=== PATIENT | female | born 2000 | race Caucasian/White ===

== ENCOUNTER 2022-03-24 16:55 | Emergency (ER) | payer OTHER, SELFPAY ==
[2022-03-24 16:55] VITALS: BP 112/78; PULSE 90; RESP 15; TEMP 36.9; O2SAT 100; BMI 17.9
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
[2022-03-24 17:19] VITALS: BMI 18.4
[2022-03-24] MEDS: Rabies Vaccine,Human Diploid 2.5 UNITS Vial IM (17:39)
[2022-03-24] MEDS: Rabies Immune Globulin 150 UNITS/ML 860 UNITS IM (17:45)
--- NOTE | 2022-03-24 18:02 | ED.RN ---
see rabies paper documentation
== END 2022-03-24 18:04 | disposition home or self-care (01) ==
LOC: ED 17:24
PROVIDERS: Emergency Provider Emergency Medicine; Visit Provider Emergency Medicine
DX: Z23 Encounter for immunization (principal)
CPT/HCPCS: 90375; 90675; 99282

== ENCOUNTER 2022-03-27 08:02 | Outpatient (CLI) | payer OTHER, SELFPAY ==
[2022-03-27 08:03] VITALS: BP 104/73; PULSE 79; RESP 16; TEMP 36.3; O2SAT 100; BMI 17.9
[2022-03-27] MEDS: Rabies Vaccine,Human Diploid 2.5 UNITS Vial IM (08:31)
== END 2022-03-27 08:45 | disposition home or self-care (01) ==
LOC: ED 08:56
DX: Z23 Encounter for immunization (principal)
CPT/HCPCS: 90675; 96372

== ENCOUNTER 2022-03-31 12:53 | Outpatient (CLI) | payer OTHER, SELFPAY ==
[2022-03-31 12:53] VITALS: BP 110/72; PULSE 83; RESP 15; TEMP 36.5; O2SAT 98; BMI 18.2
[2022-03-31 13:06] VITALS: RESP 15; BMI 18.2
[2022-03-31] MEDS: Rabies Vaccine,Human Diploid 2.5 UNITS Vial IM (13:31)
== END 2022-03-31 13:56 | disposition home or self-care (01) ==
LOC: ED 13:58
PROVIDERS: Visit Provider Student in an Organized Health Care Education/Training Program
DX: Z23 Encounter for immunization (principal)
CPT/HCPCS: 90675; 96372

== ENCOUNTER 2022-04-07 10:28 | Outpatient (CLI) | payer OTHER, SELFPAY ==
[2022-04-07 10:32] VITALS: BP 134/90; PULSE 80; RESP 16; TEMP 36.3; O2SAT 99; BMI 17.9
[2022-04-07] MEDS: Rabies Vaccine,Human Diploid 2.5 UNITS Vial IM (11:04)
== END 2022-04-07 11:58 | disposition home or self-care (01) ==
LOC: ED 11:59
PROVIDERS: Visit Provider Emergency Medicine
DX: Z23 Encounter for immunization (principal)
CPT/HCPCS: 90675; 96372

== ENCOUNTER → 2024-01-31 | Outpatient (CLI) | payer OTHER, SELFPAY ==
[2024-01-31 11:34] LABS: Bacteria 0 SEEN /hpf (None Seen); Mucous, Urine 0 SEEN /hpf (<or=2+)
[2024-01-31 12:39] LABS: Color, Urine Yellow (Yellow); Glucose, Dipstick Normal (Normal); Ketone-Dipstick Negative (Negative); Leukocyte Esterase-Dipstick 500 /ul (Negative); Nitrite-Dipstick Negative (Negative); Occult Blood-Urine 10 /ul (Negative); Protein-Dipstick Negative (Negative); Urine Bilirubin Dipstick Negative (Negative); Urine Clarity Clear (Clear); Urine Urobilinogen Normal (Normal); Urine pH 6.5 (5.0 - 8.0)
[2024-01-31 13:01] LABS: Red Blood Cells-Urine 0-5 SEEN /hpf (0-5); Squamous Epithelial Cells - UA 0-5 SEEN /hpf (5-10); White Blood Cells 25-50 SEEN /hpf (0-5)
[2024-01-31 13:31] LABS: Internal QC Validated? YES +Cl - CLEAR BKGD; Pregnancy, Urine Negative Negative
[2024-01-31 15:46] LABS: Absolute Lymphocyte Count 1.74 X10^3/uL (0.83-4.51); Absolute Neutrophil Count 3.6 X10^3/uL (2.0-7.7); Basophil# 0.07 X10^3/uL; Basophil% 1.2 % (0-1); Eosinophil# 0.22 X10^3/uL; Eosinophils% 3.6 % (0-5); Hematocrit 42.1 % (37-47); Hemoglobin 13.2 g/dL (12.0-15.0); Lymphocyte # 1.74 X10^3/ul (0.83-4.51); Lymphocyte % 28.6 % (19-41); Mean Corp Hgb Conc 31.4 g/dL (32-36); Mean Corpuscular Hgb 28.7 pg (27.0-32.0); Mean Corpuscular Volume 91.5 fL (81-99); Mean Platelet Vol. 12.6 fl (6.2-12.0); Monocyte# 0.41 X10^3/uL; Monocyte% 6.7 % (0-10); NRBC Flagged by Analyzer 0 % (0-5); Neutrophil # 3.59 X10^3/uL (2.7-7.7); Neutrophil % 59.1 % (47-70); Platelet Count 291 K/mm3 (150-450); RBC Distribution Width CV 12.3 % (11.6-14.6); White Blood Count 6.1 K/mm3 (4.4-11.0)
[2024-01-31 16:49] LABS: HIV - WCH Non-Reactive (Nonreactive); Hepatitis B Surface Antibody Non-Reactive; Hepatitis C Antibody Non-Reactive (Nonreactive); Syphilis Antibodies Non-reactive
[2024-02-01 01:32] LABS: ALB/GLOB Ratio 1.1 RATIO (0.9-2.4); AST(SGOT) 17 U/L (15-37); Alanine Aminotransfer ALT/SGPT 29 U/L (13-56); Albumin, Serum 3.8 g/dL (3.2-5.0); Alkaline Phosphatase 76 U/L (45-117); Anion Gap 6 (5-15); BUN 9 mg/dL (7-18); BUN/Creat Ratio 12.9 RATIO (10-20); Calcium,Total 8.9 mg/dL (8.5-10.1); Chloride 108 mmol/L (98-107); Cholesterol 186 mg/dL (200); EST Glomerular Filtration Rate 111 mL/min (>60); Est Glom Filt Rate - Afr Amer 134 mL/min (>60); Globulin 3.6 g/dL (2.2-4.2); Glucose 104 mg/dL (74-106); High Density Lipoprotein 61 mg/dL; Potassium 4.7 mmol/L (3.5-5.1); Protein, Total 7.4 g/dL (6.4-8.2); Sodium Level 140 mmol/L (136-145); T4 Free Direct 0.78 ng/dL (0.76-1.46); Thyroid Stim Hormone (TSH) 0.85 uIU/mL (0.358-3.74); Triglycerides 60 mg/dL; Very Low Density Lipoprotein 12 mg/dL (5-40)
== END | disposition home or self-care (01) ==
PROVIDERS: PCP Nurse Practitioner; Referring Provider Nurse Practitioner; Visit Provider Nurse Practitioner
DX: Z00.00 Encounter for general adult medical examination without abnormal findings (principal); R63.5 Abnormal weight gain; Z11.3 Encounter for screening for infections with a predominantly sexual mode of transmission; N89.8 Other specified noninflammatory disorders of vagina
CPT/HCPCS: 36415; 80053; 80061; 81001; 81025; 84439; 84443; 85025; 86703; 86706; 86780; 86803; 87491; 87591; 87661

== ENCOUNTER 2024-07-03 07:27 | Emergency (ER) | payer OTHER, SELFPAY ==
[2024-07-03 07:28] VITALS: BP 133/96; PULSE 70; RESP 16; TEMP 36.2; O2SAT 97; BMI 22.1
--- NOTE | 2024-07-03 07:54 | EKG12_ITS ---
Test Reason : PALPS Blood Pressure : */* mmHG Vent. Rate : 82 BPM Atrial Rate : 82 BPM P-R Int : 94 ms QRS Dur : 94 ms QT Int : 366 ms P-R-T Axes : 54 39 66 degrees QTcB Int : 427 ms Sinus rhythm with short FL Otherwise normal ECG Confirmed by MICHELLE EL, DEVEN ([id number]), photography editor BINDU LOVE ([id number]) on 07/07/2024 7:55:12 AM Referred By: Confirmed By: DEVEN MARTINEZ MD
--- NOTE | 2024-07-03 07:59 | EDS_ITS ---
HPI History of Present Illness Chief Complaint: Nausea/Vomiting Narrative Narrative: Chief complaint and HPI: Palpitations. 23-year-old female with history of anxiety and depression presents for evaluation of intermittent palpitations. Patient states for the past 2 months she has been having intermittent palpitations that then lead to a warm sensation, tingling in the bilateral hands, and nausea and vomiting. She states she is very anxious during these episodes. Patient states she has been under a lot of stress lately. She smokes marijuana which helps with her anxiety. She denies any other illicit drug use or daily alcohol use. Patient states she talked to her psychiatrist about this and they increased her medications. She has not seen her PCP. Patient states she is on control. She does not believe herself to be although she is sexually active. She denies any fever, URI symptoms, chest pain, shortness of breath, abdominal pain, dysuria. She states these attacks happen frequently. Review of systems: See HPI Medications: As listed on the chart Allergies: As listed on the chart PFSH: Per chart Vital signs: As listed on the chart. Reviewed. Physical exam: Gen: A&O x3, NAD but very anxious Head: Normocephalic, atraumatic Eyes: No sclera icterus, conjunctiva clear ENT: Moist mucous membranes Neck: Trachea midline, No JVD CV: RRR, no murmurs, no peripheral edema Resp: Lungs CTA BL, no w/r/c GI: Abd soft, non-distended, non-tender, no r/r/g Musc: Full ROM, no deformity Skin: Warm, dry Neuro: Alert, oriented, grossly intact, sensation intact Psych: Cooperative, very anxious [facility] Medical History (Updated 07/03/24 @ 10:[address] Francisco J Olmos, DO) Vision problems Emotional problems Seasonal allergies Home Medications ?Medication ?Instructions ?Recorded ?Last Taken ?Type escitalopram oxalate 10 mg tablet 10 mg PO DAILY 01/31/24 Unknown History etonogestrel 68 mg subdermal 1 implant subdermal ONCE 01/31/24 Unknown History implant (Nexplanon) fluconazole 150 mg tablet 150 mg PO Q3D 2 doses #2 tabs 01/31/24 Unknown Rx propranolol 20 mg tablet 20 mg PO DAILY 01/31/24 Unknown History Allergy/AdvReac Type Severity Reaction Status Date / Time Seasonal Allergies: Uncoded Allergy Mild Other Verified 07/03/24 07:40 potato Allergy Rash Verified 07/03/24 07:40 Family History (Updated 01/31/24 @ 10:47 by Margaret Molina) Mother Anxiety Arthritis History of blood clots Hypertension Myocardial infarction Depression Cancer ovarian, skin CA Brother Anxiety Diabetes Depression Psychiatric care Father Hypertension Diabetes Surgical History History of wisdom tooth extraction Social History (Updated 01/31/24 @ 10:52 by Margaret Molina) Smoking Status: Never smoker alcohol intake: current alcohol intake frequency: other Alcohol type: hard liquor details: weekly substance use type: marijuana what type of physical activity do you participate in: none seatbelt use: always do you feel safe at home: Yes EXAM Physical Exam Const Vital Signs: 07/03/24 07:28 07/03/24 09:28 07/03/24 09:41 Temperature 97.1 F L 97.4 F L Temperature Source Oral Pulse Rate 70 78 78 Respiratory Rate 16 14 16 Blood Pressure 133/96 H 138/88 H 138/88 H Blood Pressure Mean 108 104 104 Pulse Ox 97 100 100 Oxygen Delivery Method Room Air Room Air 07/03/24 11:00 Temperature Temperature Source Pulse Rate 92 Respiratory Rate 16 Blood Pressure 135/89 H Blood Pressure Mean 104 Pulse Ox 95 Oxygen Delivery Method Room Air MDM MDM MDM Narrative Medical decision making narrative: 23-year-old female with history of anxiety and depression presents for evaluation of intermittent palpitations with other associated symptoms. Differential diagnosis includes but is not limited to panic attacks, anxiety reaction, electrolyte abnormalities, anemia, hyperthyroidism. Less likely ACS and PE. Patient is very anxious on my physical exam. Symptoms have been ongoing for 2 months. Palpitations workup ordered. EKG and chest x-ray reviewed see below. EKG is concerning for possible WPW. Patient states she has no history of this in the family or any history of arrhythmias in the family that she knows of. CBC unremarkable without leukocytosis or anemia. D-dimer unremarkable. BMP unremarkable. Troponin unremarkable. TSH unremarkable. UA shows leuk esterase as well as 3+ bacteria however no RBCs or WBCs. No nitrates. It is a dirty sample with 5-10 squamous epithelial. Not a UTI. Patient is not endorsing any UTI type symptoms. Urine negative. Given her EKG findings concerning for possible WPW, cardiology was consulted and I spoke with Dr. Palm. He agrees that her EKG is concerning for possible WPW. Recommendation is for a 30-day Holter monitor and follow-up outpatient in the cardiology clinic given that she has been having intermittent palpitations. This was prescribed. Patient was educated on all her findings as well as concern for WPW. She confirmed understanding. Return precautions were explained. Patient is stable to discharge home. EKG: Interpreted by me/EM physician: EKG shows normal sinus rhythm without any acute ischemic changes. Patient does have short NV interval what appears to be delta waves, both of these are concerning for WPW. Heart rate 82. Diagnostic: Interpreted by me/EM physician: Chest x-ray without pneumonia, effusion, pneumothorax, cardiomegaly Impression: 1. Intermittent palpitation 2. EKG concerning for possible WPW Lab Data Labs: Laboratory Results - last 24 hr 07/03/24 08:04 WBC 9.3 RBC 5.21 Hgb 14.9 Hct 45.0 MCV 86.4 MCH 28.6 MCHC 33.1 RDW Std Deviation 38.8 RDW Coeff of Sharri 12.3 Plt Count 318 MPV 12.4 H Immature Gran % (Auto) 0.800 Neut % (Auto) 71.6 H Lymph % (Auto) 19.8 [place] % (Auto) 6.5 Eos % (Auto) 0.5 Baso % (Auto) 0.8 Absolute Neuts (auto) 6.6 Absolute Lymphs (auto) 1.84 Nucleated RBC % 0 D-Dimer Quant (PE/DVT) 0.27 Sodium 140 Potassium 3.7 Chloride 106 Carbon Dioxide 29.0 Anion Gap 6 BUN 16 Creatinine 0.84 Estim Creat Clear Calc 74.82 Est GFR (MDRD) Af Amer 108 Est GFR (MDRD) Non-Af 89 BUN/Creatinine Ratio 19.1 Glucose 108 H Calcium 10.0 Troponin I High Sens < 3 L TSH 1.300 Urine Color Yellow Urine Clarity Clear Urine pH 6.0 Ur Specific [place] 1.025 Urine Protein 15 H Urine Glucose (UA) Normal Urine Ketones 15 H Urine Occult Blood Negative Urine Nitrite Negative Urine Bilirubin Negative Urine Urobilinogen Normal Ur Leukocyte Esterase 100 H Urine RBC 0 SEEN Urine WBC 0-5 SEEN Ur Squamous Epith Cells 5-10 SEEN Urine Bacteria 3+ Urine Mucus 0 SEEN Urine Test Negative Radiography Diagnostic Testing: Clinical Impression(s) from Imaging Studies Chest X-Ray 07/03/24 08:10 IMPRESSION: Hyperinflation. The lungs are clear. 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 Holter monitor will be sent to your house. Return back to the ED if symptoms change or worsen. Print Language: Bahamian Disposition Disposition: Home, Self Care Discharge Date/Time: 07/03/24 11:11
--- NOTE | 2024-07-03 08:10 | RAD_ITS ---
STUDY: X-RAY CHEST REASON FOR EXAM: Female, 23 years old. Palpitations TECHNIQUE: Single AP portable view of the chest. COMPARISON: Comparison is made with prior study August 08, 2013. FINDINGS: Hyperinflation. The lungs are clear. There is no demonstrated pleural abnormality. Normal size heart. Normal mediastinum and june. Normal visualized pulmonary arteries. Normal visualized aortic arch and descending thoracic aorta. Normal visualized thoracic spine. Normal visualized ribs, clavicles, and shoulders. There is no demonstrated abnormality of the visualized soft tissue structures of the upper abdomen. RAD/Chest 1 View (Portable) IMPRESSION: Hyperinflation. The lungs are clear. Electronically Signed: Yared Ramirez MD at 8:21 EST ,
[2024-07-03 08:23] LABS: Mucous, Urine 0 SEEN /hpf (<or=2+); Red Blood Cells-Urine 0 SEEN /hpf (0-5)
[2024-07-03 08:35] LABS: Internal QC Validated? YES +Cl - CLEAR BKGD; Pregnancy, Urine Negative Negative
[2024-07-03 08:38] LABS: Color, Urine Yellow (Yellow); Glucose, Dipstick Normal (Normal); Ketone-Dipstick 15 mg/dl (Negative); Leukocyte Esterase-Dipstick 100 /ul (Negative); Nitrite-Dipstick Negative (Negative); Occult Blood-Urine Negative /ul (Negative); Protein-Dipstick 15 mg/dl (Negative); Specific Gravity, Urine 1.025 (1.002-1.030); Urine Bilirubin Dipstick Negative (Negative); Urine Clarity Clear (Clear); Urine Urobilinogen Normal (Normal)
[2024-07-03 08:44] LABS: Absolute Lymphocyte Count 1.84 X10^3/uL (0.83-4.51); Absolute Neutrophil Count 6.6 X10^3/uL (2.0-7.7); Basophil# 0.07 X10^3/uL; Basophil% 0.8 % (0-1); Eosinophil# 0.05 X10^3/uL; Eosinophils% 0.5 % (0-5); Hemoglobin 14.9 g/dL (12.0-15.0); Lymphocyte # 1.84 X10^3/ul (0.83-4.51); Lymphocyte % 19.8 % (19-41); Mean Corp Hgb Conc 33.1 g/dL (32-36); Mean Corpuscular Hgb 28.6 pg (27.0-32.0); Mean Corpuscular Volume 86.4 fL (81-99); Mean Platelet Vol. 12.4 fl (6.2-12.0); Monocyte% 6.5 % (0-10); NRBC Flagged by Analyzer 0 % (0-5); Neutrophil # 6.64 X10^3/uL (2.7-7.7); Neutrophil % 71.6 % (47-70); Platelet Count 318 K/mm3 (150-450); RBC Distribution Width CV 12.3 % (11.6-14.6); RBC Distribution Width SD 38.8 fl (35.1-43.9); Red Blood Count 5.21 M/mm3 (4.2-5.4); White Blood Count 9.3 K/mm3 (4.4-11.0)
[2024-07-03 08:50] LABS: Anion Gap 6 (5-15); BUN 16 mg/dL (7-18); BUN/Creat Ratio 19.1 RATIO (10-20); Chloride 106 mmol/L (98-107); Creatinine, Serum 0.84 mg/dL (0.55-1.02); EST Glomerular Filtration Rate 89 mL/min (>60); Est Glom Filt Rate - Afr Amer 108 mL/min (>60); Estimated Creatinine Clearance 74.82 ml/min; Glucose 108 mg/dL (74-106); Potassium 3.7 mmol/L (3.5-5.1); Sodium Level 140 mmol/L (136-145); Troponin-I HS < 3 pg/mL (3.0-54.0)
[2024-07-03 08:56] LABS: Bacteria 3+ /hpf (None Seen); Squamous Epithelial Cells - UA 5-10 SEEN /hpf (5-10); White Blood Cells 0-5 SEEN /hpf (0-5)
[2024-07-03 09:03] LABS: D-Dimer Quantitative (DVT/PE) 0.27 FEU/ug/m (0.27-0.49)
[2024-07-03 09:28] VITALS: BP 138/88; PULSE 78; RESP 14; O2SAT 100
[2024-07-03 09:41] VITALS: BP 138/88; PULSE 78; RESP 16; TEMP 36.3; O2SAT 100
[2024-07-03 11:00] VITALS: BP 135/89; PULSE 92; RESP 16; O2SAT 95
== END 2024-07-03 11:11 | disposition home or self-care (01) ==
PROVIDERS: Emergency Provider Surgery; PCP Nurse Practitioner; Visit Provider Surgery
DX: R00.2 Palpitations (principal); R94.31 Abnormal electrocardiogram [ECG] [EKG]; R20.2 Paresthesia of skin; R11.2 Nausea with vomiting, unspecified; F41.9 Anxiety disorder, unspecified; F32.A Depression, unspecified; Z79.899 Other long term (current) drug therapy
CPT/HCPCS: 71045; 80048; 81001; 81025; 84443; 84484; 85025; 85379; 93005; 99284; A4216

== ENCOUNTER → 2024-07-22 | Outpatient (CLI) | payer OTHER, SELFPAY ==
[2024-07-22 13:39] LABS: HIV - WCH Non-Reactive (Nonreactive); Hepatitis B Surface Antibody Non-Reactive; Hepatitis C Antibody Non-Reactive (Nonreactive); Syphilis Antibodies Non-reactive
[2024-07-23 06:10] LABS: Hepatitis A AB, Total Positive (Negative)
== END | disposition home or self-care (01) ==
LOC: BIMLAB 08:27
PROVIDERS: PCP Physician Assistant; Referring Provider Physician Assistant; Visit Provider Physician Assistant
DX: Z11.3 Encounter for screening for infections with a predominantly sexual mode of transmission (principal)
CPT/HCPCS: 36415; 86695; 86696; 86703; 86706; 86708; 86780; 86803; 87491; 87591; 87661

== ENCOUNTER → 2024-08-06 | Outpatient (CLI) | payer OTHER, SELFPAY ==
[2024-08-08 05:06] LABS: Hepatitis A IgM Antibody Negative (Negative)
[2024-08-10 09:52] LABS: Hepatitis A AB, Total Negative
== END | disposition home or self-care (01) ==
LOC: BIMLAB 08:02
PROVIDERS: PCP Physician Assistant; Referring Provider Physician Assistant; Visit Provider Physician Assistant
DX: R76.8 Other specified abnormal immunological findings in serum (principal)
CPT/HCPCS: 36415; 86708; 86709

== ENCOUNTER → 2024-10-22 | Outpatient (CLI) | payer OTHER, SELFPAY ==
[2024-10-22 13:08] LABS: HIV Nonreactive (Nonreactive); Hepatitis B Surface Antigen Nonreactive (Nonreactive); Hepatitis C Antibody Nonreactive (Nonreactive); Syphilis Antibodies Nonreactive (Nonreactive)
[2024-10-24 12:08] LABS: Chlamydia By Nucleic Acid AMP Negative (Negative); Gonococcus By Nucleic Acid AMP Negative (Negative); Hepatitis A IgM Antibody Negative (Negative)
[2024-10-30 20:08] LABS: HPV APTIMA, High Risk Positive (Negative)
[2024-11-03 07:36] LABS: HPV Reflexed? YES, CHARGE PATIENT
== END | disposition home or self-care (01) ==
LOC: BWCLAB 10:31
PROVIDERS: PCP Physician Assistant; Referring Provider Advanced Practice Midwife; Visit Provider Advanced Practice Midwife
DX: Z20.2 Contact with and (suspected) exposure to infections with a predominantly sexual mode of transmission (principal); Z12.4 Encounter for screening for malignant neoplasm of cervix
CPT/HCPCS: 36415; 86695; 86696; 86703; 86709; 86780; 86803; 87070; 87205; 87340; 87491; 87591; 87624; 88175; G0145